=== PATIENT | male | born 1995 | race African-American/Black ===

== ENCOUNTER 2018-12-13 15:11 | Inpatient (IN) | payer OTHER ==
--- NOTE | 2018-12-13 15:43 | PDOC.FPRHP ---
- History of Present Illness Chief Complaint: Influenza/SSC History of Present Illness: Mr Duron is a 23yo male with pmh of sickle cell directly admitted from [facility] for sickle cell crisis and influenza positive. Patient was somnolent during exam and most of history obtained from mother. Pain started this morning at 0130. Pain is mostly in his knees and back. This is typically where he has pain with sickle cell crisis. He has some chest pain early this morning but is not currently complaining of chest pain. Pain is 9/10. Tolerable for him is 6/10. 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 Reports no sick contacts and has had no symptoms of cough, congestion, rhinorrhea. Denies SOB. Up to date on immunizations. Received flu vaccine prior to flu season, 2017. Last hospitalization due to sickle cell was 2016. Lowest Hgb 8. Baseline is around 10. Has not established care with Paper Control Clerk here yet, have an appt in [place] in January. Had been seeing infection preventionist in [place] where he completed his undergrad. 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 denies: weight/appetite/sleep changes, fatigue Eyes: denies: eye pain, vision changes ENT: denies: nasal congestion, rhinorrhea Respiratory: denies: cough, congestion, shortness of breath Cardiovascular: denies: chest pain, palpitation Gastrointestinal: reports: abdominal pain. denies: nausea, vomiting Genitourinary: denies: dysuria Skin: denies: rashes, lesions Musculoskeletal: reports: pain, tenderness, stiffness, arthritis/arthralgias Neurological: denies: weakness - Vital signs BP: 125/71 HR: 110 RR: 18 Tmax: 99.2 Pox: 99% on 2L Wt: 99.2 - Physical Exam Constitutional: well developed -Constitutional: Somnolent, in distress HEENT: normocephalic and atraumatic, conjunctiva clear, MMM, oropharynx clear Neck: supple, trachea midline, no LAD Heart: RRR, no murmurs/rubs/gallops Lungs: CTAB, no respiratory distress Abdomen: soft, non-tender, bowel sounds present Musculoskeletal: normal structure, normal tone, ROM grossly normal Neurological: no focal deficit Skin: no rash/lesions, capillary refill <2 seconds Heme/Lymphatic: no petechia Psychiatric: other (oriented but not alert) FMR H&P: Results - Radiology Interpretation Chest x-ray Status: report reviewed by me Additional comment: Course patchy bilateral opacities without consolidation. Heart borderline prominent for technique. There is no effusion or penumothorax. Incidental note made of bone infarcts within the bilateral proximal humerus. CT scan - head Status: report reviewed by me Additional comment: Unremarkable. No acute findings FMR H&P: A/P - Problem List (1) Sickle cell anemia Current Visit: Yes Status: Acute Code(s): D57.1 - SICKLE-CELL DISEASE WITHOUT CRISIS (2) Sickle cell crisis Current Visit: Yes Status: Acute Code(s): D57.00 - HB-SS DISEASE WITH CRISIS , UNSPECIFIED (3) G6PD deficiency Current Visit: Yes Status: Acute Code(s): D55.0 - ANEMIA DUE TO GLUCOSE-6- PHOSPHATE DEHYDROGENASE DEFICIENCY (4) Osteonecrosis of jaw Current Visit: Yes Status: Acute Code(s): M87.08 - IDIOPATHIC ASEPTIC NECROSIS OF BONE, OTHER SITE - Plan 23yo male with pmh of sickle cell presenting with sickle cell crisis and Influenza B Sickle Cell Crisis - CXR- Course patchy bilateral opacities without consolidation. Will repeat CXR - CT- Unremarkable - s/p Morphine 4mg x2, Dilaudid 1mg x2, Benadryl, Haldol 5mg at OSH - Diluadid 2mg q4h PRN - Continuous O2 monitoring and O2 NC - Continue home hydroxyurea - Ceftriaxone for prophylaxis as pt has fever - NPO until more alert - Will obtain labs, repeat CXR and EKG - Hgb from OSH appears to be pts baseline - Admit to tele as pt tachycardic and currently tachypneic. Likely related to pain. Currently no concern for acute chest syndrome. Influenza B - Orderd Tamiflu - NS @125 - Contact Precautions G6PD def - Avoid Sulfa Code Status: FULL, clarify once more awake DVT ppx: Lovenox PCP: Dr Conner Johnson infection preventionist FMR H&P: Upper Level - Pertinent history Pt is a 23 y/o M with Sickle cell SS disease, and G6PD presenting from [facility] ED for pain. History per mother states he was hurting a little in his legs and back mostly. Onset 1:30am and worsening since then as high as 9/ 10. Did have episode of slight chest pain. Was given a total of Dilaudid 2mg, Morphine 8mg, Benadryl, and Zofran starting this am at 7:00. Pain was unable to be controlled there and he required higher level of care. Additionally he tested positive for Influenza B. He is unable to speak and provide a history, but is responsive to and obeys commands and wakes upon verbal stimulation. His mother states he has been hospitalized in the past. In 2016 she states he received too much fluids through an IV during his hospitalization. He has crisis q4-8w, but usually receives fluids and pain medications and does not require pain medications. Does also have a history of jaw necrosis and knee problems 2/2 SCD. Also had a large abdominal surgery as a child in [place] for intussusception. He is currently tachycardic, tachypnic, on 2L O2. - Pertinent findings Pt tachycardic, tachypnic, and A/Ox3, but lethargic. CXR pending Outside CBC mild anemia and influenza pos. - Plan Date/Time: 12/13/18 [id number] IHarvey, have evaluated this patient and agree with findings/plan as outlined by university internship resident. Pertinent changes/additions are listed here. 1. Acute Sickle Cell Crisis Will place on O2, IVF, and focus on pain management. Will hold on pain medications until he becomes more alert, then will begin more aggressive therapy. Also concerned about Chest Syndrome and will order CXR. Empiric abx with Rocephin. 2. Influenza B Tamiflu started 2/16 am. Will continue IVF and treat fever with Tylenol. Droplet precautions. 3. AMS Pt lethargic likely 2/2 pain medications given at outside ED. Receive Dilaudid 2mg total, Morphine 8mg, Haldol 5mg, and Benadryl since 0700. CT negative reviewed from his ED chart. 4. G6PD Deficiency Will avoid sulfa and interacting medications. Addendum - Attending - Attending Attestation Date/Time: 12/13/181900 I personally evaluated the patient and discussed the management with Dr. Osborn /Carmina I agree with the History, Examination, Assessment and Plan documented above with any addition or exceptions noted below.23 Male yo with Influenza B and sickle cell crisis c/o pain knees and back PMHX G6PD deficiency no high suspicion at current time for Chest syndrome will watch expectantly. Care plan discussed with Patient and family.
[2018-12-13 16:28] VITALS: BMI 29.4
[2018-12-13] MEDS ORDERED: Ondansetron PF 4 MG/2 ML Vial IVP PRN (16:32)
[2018-12-13] MEDS: Sodium Chloride 0.9% 1,000 ML IV SCH (16:44)
--- NOTE | 2018-12-13 17:17 | RAD ---
PORTABLE CHEST ONE VIEW: 12/12/18 at 5:09 p.m. HISTORY: Sickle cell pain crisis, chest pain. FINDINGS: The heart size is borderline. No focal areas of consolidation, pneumothorax, erika pulmonary edema or pleural effusions are seen. IMPRESSION: No acute process. POS: [facility]
[2018-12-13] MEDS ORDERED: cefTRIAXone\\ROCEPHIN 1 GM in Sodium Chloride 0.9% 100 ML IVPB SCH (18:30)
[2018-12-13 19:01] LABS: Hemoglobin 9.5 g/dL (14.0-18.0); Mean Corpuscular HGB CONC 33.4 g/dL (32.0-36.0); Mean Corpuscular Hemoglobin 32.2 pg (27.0-31.0); Mean Corpuscular Volume 96.4 fL (78.0-98.0); Red Blood Cell (RBC) Count 2.95 mill/uL (4.70-6.10); White Blood Cell (WBC) Count 10.7 thou/uL (4.8-10.8)
[2018-12-13 19:30] LABS: Anisocytosis SLIGHT = 6-15 cells (100X) (0-5/hpf); Lymphocytes 3 % (21-51); MDiff Complete? YES; Monocytes 3 % (0-10); Neutrophil 94 % (42-75); Nucleated RBC 2 % (0); Platelet Count 303 thou/uL (130-400); Platelet Morphology Comment Appears Adequate; Poikilocytosis SLIGHT = 6-15 cells (100X) (0-5/hpf); Polychromasia SLIGHT = 2-3 cells (100X) (0-2/hpf); RBC Distribution Width 22.1 % (11.5-14.5); Sickle Cells SLIGHT = 1-5 cells (100X) (None Seen); Target Cells SLIGHT = 2-5 cells (100X) (0-1/hpf)
[2018-12-13] MEDS: Oseltamivir 75 MG CAP PO SCH (20:03)
[2018-12-13] MEDS ORDERED: Polyethylene Glycol 3350 17 GM Packet PO SCH (20:45)
[2018-12-13] MEDS ORDERED: Hydroxyurea 500 MG CAP PO SCH (21:00)
[2018-12-13] MEDS ORDERED: Acetaminophen 325 MG TAB PO PRN (21:46)
[2018-12-13] MEDS: HYDROmorphone 2 MG TAB PO PRN (22:16)
[2018-12-14] MEDS: Sodium Chloride 0.9% 1,000 ML IV SCH ×2 (01:12→08:58)
[2018-12-14] MEDS: HYDROmorphone 2 MG TAB PO PRN ×3 (02:16→12:54)
--- NOTE | 2018-12-14 06:18 | PDOC.FM ---
- Subjective Subjective: Feeling well this morning. Had a shower. Pain is back at baseline 04/06. He would like to go back to his home pain medication. Denies chest pain. - Objective MAR Reviewed: Yes Vital Signs & Weight: Vital Signs (12 hours) Temp Pulse Resp BP Pulse Ox 12/14/18 04:30 99.5 F 96 20 141/63 H 97 12/13/18 23:30 99.5 F 97 20 144/69 H 99 12/13/18 20:32 100.5 F H 110 H 18 135/66 100 12/13/18 20:00 100 12/13/18 18:29 99.3 F 101 H 18 139/64 98 Weight Weight 92.986 kg I&O: 12/12/18 12/13/18 12/14/18 06:59 06:59 06:59 Output Total 900 Balance -900 Result Diagrams: 12/13/18 18:32 Phys Exam - Physical Examination HEENT: moist MMs Neck: supple Respiratory: no wheezing, clear to auscultation bilateral Cardiovascular: RRR, no significant murmur Gastrointestinal: soft, positive bowel sounds Musculoskeletal: pulses present Neurological: moves all 4 limbs Psychiatric: normal affect, A&O x 3 Skin: normal turgor, cap refill <2 seconds Dx/Plan (1) Sickle cell anemia Code(s): D57.1 - SICKLE-CELL DISEASE WITHOUT CRISIS Status: Acute (2) Sickle cell crisis Code(s): D57.00 - HB-SS DISEASE WITH CRISIS, UNSPECIFIED Status: Acute (3) G6PD deficiency Code(s): D55.0 - ANEMIA DUE TO [id number] DEHYDROGENASE DEFICIENCY Status: Acute (4) Osteonecrosis of jaw Code(s): M87.08 - IDIOPATHIC ASEPTIC NECROSIS OF BONE, OTHER SITE Status: Acute - Plan Plan: 23yo male with pmh of sickle cell presenting with sickle cell crisis and Influenza B Sickle Cell Crisis - CXR- Course patchy bilateral opacities without consolidation. Will repeat CXR - CT- Unremarkable - s/p Morphine 4mg x2, Dilaudid 1mg x2, Benadryl, Haldol 5mg at OSH - D/c Diluadid 2mg q4h PRN, resume home pain meds. Will provide Rx - Continue home hydroxyurea - D/c antibiotics - Discontinue IVF Influenza B - Continue Tamiflu - D/c NS @125 - Contact Precautions G6PD def - Avoid Sulfa Code Status: FULL, clarify once more awake DVT ppx: Lovenox PCP: Dr Conner Johnson animal science instructor D/c Today Addendum - Attending - Attending Attestation Date/Time: 12/14/18 [id number] I personally evaluated the patient and discussed the management with Dr. Osborn I agree with the History, Examination, Assessment and Plan documented above with any addition or exceptions noted below. Patient doing well. Pain controlled feeling much better ok dismiss home with po rx patient and family requesting to leave.
[2018-12-14 08:06] VITALS: TEMP 98.4
[2018-12-14] MEDS: Oseltamivir 75 MG CAP PO SCH (08:52)
[2018-12-14] MEDS ORDERED: Bisacodyl 5 MG TAB PO SCH ×2 (10:15→21:00)
[2018-12-14] MEDS ORDERED: HYDROcodone/Acetaminophen 10/325 mg Tablet PO SCH (10:30)
[2018-12-14 11:52] VITALS: BP 136/63
--- NOTE | 2018-12-16 10:11 | DIS ---
DATE OF ADMISSION: 12/13/2018 DATE OF DISCHARGE: 12/14/2018 RESIDENT: Catherine Osborn MD, PGY-1 ADMITTING ATTENDING: Moe Swift MD DISCHARGE ATTENDING: Moe Swift MD CONSULTS: None. PROCEDURES: Chest x-ray, no acute process. PRIMARY DIAGNOSES: 1. Sickle cell crisis. 2. Influenza B. SECONDARY DIAGNOSES: 1. G6PD deficiency. 2. Osteonecrosis of the jaw. DISCHARGE MEDICATIONS: 1. Azithromycin 500 mg day 1 and 250 mg thereafter for a total of 5 days. 2. Folic acid 1 mg daily. 3. Hydroxyurea 1500 mg at bedtime. 4. Tamiflu 75 mg b.i.d. for 4 days. Discontinued medications: None. HISTORY OF PRESENT ILLNESS/HOSPITAL COURSE: Mr. Duron is a 23-year-old male with past medical history of sickle cell anemia, directly admitted from [facility] for sickle cell crisis and influenza B positive. The patient arrives, somnolent, likely secondary to the pain medications he received at the outside hospital including morphine 4 mg x2, Dilaudid 1 mg x2, Haldol 5 mg with Benadryl. Pain is typically 6/10 and that is tolerable for him as outpatient. Pain at admission was 9/10, mostly in his knees and back. He denied any chest pain. He has been on oxygen, received lactated Ringer's, IV fluid and was placed on ceftriaxone for prophylaxis. He had received his flu vaccine in the beginning of the flu season in 2018, up to date on immunizations. His baseline hemoglobin is 10, lowest is 8. Hemoglobin at admission 9.5. Blood cultures were negative. His last hospitalization due to sickle cell was 2016. He has a receiving clerk. He fell in [place], where he did his undergraduate. He has not established care with a receiving clerk here. He has an appointment in [place] in January. He is on [place] q.6 hours p.r.n. for pain control at home. He showed improvement in mental status once pain medications were off. He required Dilaudid for a brief period of time p.r.n. for pain and was discharged the next morning on his home regimen. He was treated with Tamiflu and discharged with course of Tamiflu. DISPOSITION: Stable. DISCHARGE INSTRUCTIONS: 1. Location: Home. 2. Diet: Regular. 3. Activity: No restrictions. 4. Followup: Follow up with Dr. Prieto, PCP, within 1 week. Job ID: [id number]
== END 2018-12-14 13:22 | disposition home or self-care (01) | DRG 812 ==
LOC: 3SE 15:11 → 2NO 17:54
PROVIDERS: ADMIT Family Medicine; ATTEND Family Medicine
DX: D57.00 Hb-SS disease with crisis, unspecified (principal); M87.08 Idiopathic aseptic necrosis of bone, other site; J10.1 Influenza due to other identified influenza virus with other respiratory manifestations; D55.0 Anemia due to glucose-6-phosphate dehydrogenase [G6PD] deficiency; Z88.2 Allergy status to sulfonamides
CPT/HCPCS: 36415; 71045; 85025; 87040; 93005; 93010; J0696; J2405; J7050